=== PATIENT | male | born 1985 | race Caucasian/White ===

== ENCOUNTER 2018-08-25 17:41 | Emergency (ER) | payer BC, OTHER ==
[~2018-08-25] VITALS: Ht 182.9 cm; Wt 114.0 kg
[~2018-08-25 17:41] MED LIST: ONDA8TAB9 PO; PROC25SU31 RC; ZOF4T PO
[2018-08-25] MEDS ORDERED: HYDROcodone/acetaminophen 10/325mg tab PO ONE (20:35)
[2018-08-25] MEDS ORDERED: orphenadrine citrate 60mg/2ml inj. IM ONE (20:35)
[2018-08-25] MEDS ORDERED: HYDR-4353 PO (22:41)
[2018-08-25] MEDS ORDERED: ORPH100T2 PO (22:41)
[2018-08-25 22:56] VITALS: BP 146/91
== END 2018-08-25 23:04 | disposition home or self-care (01) ==
LOC: ER 17:42
DX: S16.1XXA Strain of muscle, fascia and tendon at neck level, initial encounter (principal); S60.212A Contusion of left wrist, initial encounter; S00.81XA Abrasion of other part of head, initial encounter; K21.9 Gastro-esophageal reflux disease without esophagitis; Z88.0 Allergy status to penicillin; Z79.899 Other long term (current) drug therapy; W22.11XA Striking against or struck by driver side automobile airbag, initial encounter; Y93.89 Activity, other specified; Y92.488 Other paved roadways as the place of occurrence of the external cause; Y99.8 Other external cause status
CPT/HCPCS: 36415; 71045; 84484; 93005; 96372; 99284; J2360